=== PATIENT | male | born 1940 | race Caucasian/White ===

== ENCOUNTER 2016-12-28 10:30 | Inpatient (IN) | payer MEDICARE, OTHER ==
[~2016-12-28] VITALS: Ht 165.1 cm; Wt 112.5 kg
--- NOTE | ~2016-12-28 | OP ---
Record Of Operation [facility] [address] [place]. [address] NAME: HALIMA GOTTLIEB : 42 STATUS : ADM IN [facility]#: [id number] AGE: 76 ADM/REG DATE : 01/31/17 MR#: [id number] REPORT SERV DATE: 02/02/17 DICTATED BY: JOI OLSON DATE: 02/02/17 REPORT STATUS : Draft TRANSCRIBED BY: MODCelina DATE: 02/02/17 DATE OF PROCEDURE: 01/31/2017 PREOPERATIVE DIAGNOSES: 1. Aortic valve stenosis. 2. Coronary artery disease with angina. 3. Anemia, chronic and nonspecific origin. 4. Hypertension. 5. Hyperlipidemia. 6. Obesity. 7. Tobacco abuse. POSTOPERATIVE DIAGNOSES: 1. Aortic valve stenosis. 2. Coronary artery disease with angina. 3. Anemia, chronic and nonspecific origin. 4. Hypertension. 5. Hyperlipidemia. 6. Obesity. 7. Tobacco abuse. PROCEDURE PERFORMED: 1. Coronary artery bypass grafting x5: Left internal mammary artery placed to left anterior descending, reverse saphenous vein graft placed to the diagonal, reverse saphenous vein graft placed to the obtuse marginal, reverse saphenous vein graft placed to the posterolateral branch vessel and posterior descending artery. 2. Aortic valve perforation using a 23 mm pericardial valve (Trifecta). 3. Ligation and amputation of the left atrial appendage. 4. Endoscopic vein harvest, saphenous vein from the right leg. 5. Transesophageal echocardiography. ASSISTANTS: Stewart Kellogg and Gerhard Haddad. ANESTHESIA: General with Dr. Norman. FIRE SPRINKLER INSTALLER: Anthony Issa M.D. INDICATIONS: This is a 76-year-old gentleman, who has a history of angina. He has dyspnea with exertion. He does have remote history of anemia and required transfusion of 3 units of blood in 2014. He was seen earlier this summer, discussed surgery, and had an echocardiogram demonstrating at least moderate aortic valve stenosis. It looked like he had a bicuspid valve on echocardiography. Cardiac catheterization demonstrated significant three-vessel coronary artery disease. Ventricular function was preserved with an ejection fraction of greater than 50%. We were asked to see the patient for possible coronary artery bypass grafting and aortic valve replacement. We discussed this operation with the patient's family. After lengthy discussion of operation, its indications and risks, they Record Of Operation [facility] [address] [place]. [address] NAME: HALIMA GOTTLIEB : 42 STATUS : ADM IN PAT#: [id number] AGE: 76 ADM/REG DATE : 01/31/17 MR#: [id number] REPORT SERV DATE: 02/02/17 DICTATED BY: JIO OLSON DATE: 02/02/17 REPORT STATUS : Draft TRANSCRIBED BY: MODL DATE: 02/02/17 wished to proceed. The patient does have a remote history of smoking, which he quit in 1977, but continued tobacco chewing since that time. STS predicted risk of mortality of 2.3% and morbidity and mortality under 20% and this was shared with the family. FINDINGS AT OPERATION: 1. Cross-clamp time of 125 minutes. Total pump time 140 minutes. 2. The LAD is 1.75 mm and mildly diseased vessel. A 2.5 mm ASENCIO was anastomosed to it with good runoff. 3. The diagonal was 1.75 mm and moderately diseased. A 4 mm RSVG was anastomosed to it with good runoff. This was the medial branch of the diagonal bifurcation. 4. The obtuse marginal vessel was 2 mm and mildly diseased. A 4 mm RSVG was anastomosed to it with good runoff. 5. The posterior descending artery was 1.75 mm and moderately diseased. A 4 mm RSVG was anastomosed to it with good runoff. 6. The posterolateral branch vessel was 2 mm and moderately diseased. A 4 mm RSVG was anastomosed to it with good runoff. 7. The vein quality was good. All grafts did have good Doppler signal at the end of the case. 8. The aortic valve had three leaflets. There were heavy calcifications of the leaflets, although the annulus was not heavily calcified. There was no aortic root dilatation. Coronary anatomy was normal. 9. The aortic valve was replaced with a 25 mm pericardial valve (Trifecta). Sixteen Cor- Knots were used to secure the valve in place. 10.The left atrial appendage was ligated and amputated at the beginning of the case. No clot was seen in the left atrial appendage. 11.ABEBE demonstrated good ventricular function. The aortic valve prosthesis was well seated without perivalvular leak at the end the case and there was no significant mitral insufficiency. PATHOLOGIC SPECIMENS: Include aortic valve leaflets and left atrial appendage. DESCRIPTION OF PROCEDURE: The patient was brought to the operating suite where general anesthesia was induced, airway secured with an endotracheal tube. The lines were secured by Anesthesia. Díaz catheter was placed. The patient's chest, abdomen, groin, and legs prepped with Hibiclens and ChloraPrep and draped with Ioban sterile sheets. ABEBE probe was placed by Anesthesia and examination carried out in my attendance as discussed above. The saphenous vein was harvested from the right leg using endoscopic technique. Briefly, the vein was cut directly down upon through a 2 cm incision placed at the medial aspect of the right knee. Then, using VasoView trocars, the vessel was dissected from the surrounding subcutaneous tissue and fat. The side branches were identified, ligated, and divided with cautery. Once adequate length of vein had been dissected, a counterincision was made up in the groin and in the lower leg. The vein was ligated, divided, and brought through the knee incision. The vein quality was good and the leg wounds were made hemostatic and closed in layers of absorbable suture and skin was closed in subcuticular fashion. Next, a midline sternal incision was made and the sternum was opened with a saw. The left Record Of Operation [facility] [address] [facility] [place]. [address] NAME: HALIMA GOTTLIEB : 42 STATUS : ADM IN [facility]#: [id number] AGE: 76 ADM/REG DATE : 01/31/17 MR#: [id number] REPORT SERV DATE: 02/02/17 DICTATED BY: JOI OLSON DATE: 02/02/17 REPORT STATUS : Draft TRANSCRIBED BY: HAYDEE DATE: 02/02/17 hemithorax was elevated and the endothoracic fascia was incised. The side branches of the ANANT were clipped and divided. Once the ANANT was completely dissected, the patient was anticoagulated with heparin and chest tube was placed in left pleural cavity. The ANANT was clipped and divided distally. There was good flow through the ANANT and its pedicle was infiltrated with papaverine. Next, the Parveen retractor was placed in the pericardium over from the innominate vein. The diaphragm was T'd and tacked to the side of the chest wall. Cannulation pursestring sutures were placed and cannulation was carried out in routine manner. A retrograde cardioplegia cannula was placed in the coronary sinus. The ascending aorta was not heavily calcified or atherosclerotic. When all was in readiness, the patient was placed on cardiopulmonary bypass. The distal targets were marked out on the heart as described in the findings. Then, the aorta was cross-clamped. Initial dose of cold blood cardioplegia solution was given in a combination of antegrade and retrograde fashion and then in a retrograde manner at 20 to 25 minute intervals during the remainder of the cross-clamp period. Following the first dose of cardioplegia, the heart was gently retracted towards the surgeon. The ligament of Brien was divided. The base of the left atrial appendage was inspected. A 60 mm purple thoracoscopic staple load was then placed at the base of the left atrial appendage. The left atrial appendage was ligated and amputated at its base using the stapler. There was no clot seen in the left atrial appendage. We then placed a heart support. The heart was first positioned for the posterolateral branch graft. Arteriotomy was made. I felt that these were too good branches for sequential grafting. The vein was brought out to the field. It was opened proximally and a [id number] saphenous-coronary anastomosis was constructed with 7-0 Prolene. Then, the end of the vein graft was matched up to the PDA and an arteriotomy was made in this vessel. This vein graft was trimmed and anastomosed to it in an end-to-side fashion with a running suture of 7-0 Prolene. This vein graft was then measured back to the right side of the ascending aorta where it was divided. We then positioned the heart for the obtuse marginal graft. Another arteriotomy was made and the vein graft was trimmed and anastomosed to it with 7-0 Prolene. This vein graft was then measured back to the left side of the ascending aorta where it was divided. Another dose of cardioplegia was given and we positioned the heart for the diagonal graft. Arteriotomy was made and the vein graft was trimmed and anastomosed to it with 7-0 Prolene. This vein graft likewise measured back to the left side of the ascending aorta where it was divided. We then positioned the heart for the LAD graft. Arteriotomy was made in the mid LAD. The ANANT was brought out of the left chest through a notch in the pericardium over the pulmonary artery. The ANANT was opened and anastomosed to the LAD with a running suture of 8-0 Prolene. The endothoracic fascia was tacked to the epicardium. Another dose of cardioplegia was administered by Anesthesia. We then turned our attention towards the aortic valve. The heart support was removed. An LV vent was placed through right superior pulmonary vein and directed in the left ventricle through the mitral valve. A hockey-stick type aortotomy incision was made. The aortic valve was inspected. Coronary Record Of Operation [address] [place]. [address] NAME: HALIMA GOTTLIEB : 42 STATUS : ADM IN PAT#: [id number] AGE: 76 ADM/REG DATE : 01/31/17 MR#: [id number] REPORT SERV DATE: 02/02/17 DICTATED BY: JOI OLSON DATE: 02/02/17 REPORT STATUS : Draft TRANSCRIBED BY: HAYDEE DATE: 02/02/17 anatomy was normal. There was no aortic root dilatation. The aortic valve leaflets were fairly heavily calcified. There is a bar of calcium extending across the midportion of the leaflets. There was no fusion of the leaflets and there was no heavy calcification of the annulus. The leaflets were excised and the annulus debrided briefly. We then irrigated the ascending aorta and left ventricle copiously removing any particulate matter. The aortic annulus was sized and a 23 mm pericardial valve was selected (Trifecta). Interrupted pledgeted sutures of 2-0 Ti-Cron placed in a horizontal mattress fashion about the circumference of the aortic valve annulus. The pledgets were on the ventricular side. The sutures were passed through the sewing cuff of the valve prosthesis. This was lowered into position and each of the sutures individually secured and divided using a Cor-Knot device. A total of 16 Cor-Knots were utilized. The aortotomy incision was closed in a two-layer fashion with running sutures of pledgeted 5 0 Prolene. Warming was begun. Then, three 4.5 mm punch aortotomies were made in the ascending aorta. Then, the proximal end of each of the vein grafts were anastomosed to one of the sites with running sutures of 6-0 Prolene. The patient was placed in Trendelenburg and final dose of warm blood cardioplegia was given in a retrograde fashion. Ventricular and atrial pacing wires were placed. Following the last dose of cardioplegia and deairing of the aorta, the aortic cross-clamp was removed. Distal and proximal anastomoses were inspected and made hemostatic. Doppler demonstrated good flow through the grafts. The heart was paced in AV sequential fashion and ventilations begun. When the heart demonstrated good contractility, it was allowed to fill and eject. De-airing was monitored with ABEBE. When deairing was completed, the LV vent was removed and these pursestring sutures tied. The patient was taken out of Trendelenburg and the ascending aortic vent was removed and these pursestring sutures were tied and reinforced. The patient was then weaned from cardiopulmonary bypass with inotropic support. The venous cannulas were removed and these pursestring sutures were tied. ABEBE examination demonstrated good ventricular function. The aortic valve prosthesis was well seated without perivalvular leak. There was no significant mitral insufficiency. Protamine was administered by Anesthesia, and following a period of hemodynamic stability, the aortic cannula was removed and these pursestring sutures were tied and reinforced. The patient continued do well and chest was irrigated copiously with saline. Meticulous hemostasis was obtained. Hemasorb was placed along the cut edge of the sternum. Once hemostasis was assured, the pericardium was draped over the anterior surface of the heart and tacked into position. Doppler demonstrated good flow through the grafts following protamine administration. Then, chest tubes were placed and sternum reapproximated with eight sternal wires. The clavipectoral fascia and linea alba were closed with #1 StrataFix. The subcutaneous tissue was closed and skin was closed in subcuticular fashion. The patient tolerated the procedure well without any complications. Sponge and needle counts were correct. Record Of Operation [facility] [id number] [facility] [place]. [address] NAME: HALIMA GOTTLIEB : 42 STATUS : ADM IN [facility]#: [id number] AGE: 76 ADM/REG DATE : 01/31/17 MR#: [id number] REPORT SERV DATE: 02/02/17 DICTATED BY: JOI OLSON DATE: 02/02/17 REPORT STATUS : Draft TRANSCRIBED BY: HAYDEE DATE: 02/02/17 DISPOSITION: The patient was left intubated, sedated, and transported to the intensive care unit in stable condition. BROOKLYN/HAYDEE Joi Olson M.D. / [id number] CC: Mathew Gaspar M.D. Brian Mitchell, M.D.
[~2016-12-28 10:30] MED LIST: ASAB PO; BL FLAX SEED1000 MG PO; COREG6 PO; CRESTOR5 MG PO; ENDOCET1 TA3 PO; NITROSTAT0.4 MG SL; NORV25 PO; NORV5; NORV5 PO; SPIRO25 PO; TRICOR145 PO; VITAMIN D31000 UNIT PO; VITC500 PO; VITE1000 PO
[2017-01-27 10:02] LABS: BASOPHILS 0.6 %; BASOPHILS ABSOLUTE 0.04 10/3/uL (0.0-0.16); EOSINOPHILS 5.1 %; EOSINOPHILS ABSOLUTE 0.37 10/3/uL (0.0-0.53); HEMOGLOBIN 12.5 g/dL (13.6-17.8); IMMATURE GRANULOCYTES 0.1 %; IMMATURE GRANULOCYTES ABSOLUTE 0.01 10/3/uL (0.0-0.11); LYMPHOCYTES 21.1 %; LYMPHOCYTES ABSOLUTE 1.52 10/3/uL (0.67-4.30); MEAN CORPUS HGB CONC 31.9 g/dL (32.0-36.0); MEAN CORPUSCULAR HEMOGLOB 29.3 pg (26.0-34.0); MEAN PLATELET VOLUME 10.1 fL (9.2-13.0); MONOCYTES 8.1 %; MONOCYTES ABSOLUTE 0.58 10/3/uL (0.21-1.20); NEUTROPHILS ABSOLUTE 4.67 10/3/uL (2.02-8.40); PLATELET COUNT 240 10/3/uL (150-400); RBC DISTRIBUTION WIDTH 15.2 % (12.0-16.0); RED CELL COUNT 4.27 10/6/uL (4.7-6.1); WHITE BLOOD CELLS 7.2 10/3/uL (4.5-10.5)
[2017-01-27 10:03] LABS: HEMATOCRIT 39.2 % (40.0-51.0); MANUAL DIFF NO %; MEAN CORPUSCULAR VOLUME 91.8 fL (80-100)
[2017-01-27 10:06] LABS: INTERNATIONAL NORMAL RATI 1.2 UNITS (-); PROTIME (NOT ORD) 15.1 SEC (12.0-14.5)
[2017-01-27 10:17] LABS: % IRON SAT 24 % (20-50); A/G RATIO 0.9 (0.7-1.9); ALBUMIN 3.5 G/DL (3.5-5.0); ALKALINE PHOSPHATASE 48 U/L (45-117); BUN (BLOOD UREA NITROGEN) 14 MG/DL (6-23); CALCIUM, SERUM 8.9 MG/DL (8.5-10.4); CHLORIDE, SERUM 106 MMOL/L (96-112); CO2 (CARBON DIOXIDE) 30 MMOL/L (24-34); CREATININE 1.07 MG/DL (0.70-1.30); GFR AFRICAN AMERICAN 78 ML/MIN (>=60); GFR NON AFRICAN AMERICAN 68 ML/MIN (>=60); GLOBULIN 4.1 G/DL (2.5-4.1); GLUCOSE, SERUM 88 MG/DL (60-99); IRON BINDING CAPACITY 383 MCG/DL (250-450); IRON, SERUM 92 MCG/DL (35-150); POTASSIUM, SERUM 4.3 MMOL/L (3.5-5.3); SGOT(AST) 13 U/L (5-40); SGPT(ALT) 17 U/L (5-65); SODIUM, SERUM 140 MMOL/L (135-148); TOTAL BILIRUBIN 0.6 MG/DL (0-1.2); TOTAL PROTEIN 7.6 G/DL (6.0-8.5)
[2017-01-27 10:45] LABS: ASCORBIC ACID (UR NOT ORDER) 40 (NEG); BILIRUBIN, URINE NEGATIVE (NEG); KETONE, URINE NEGATIVE (NEG); LEUKOCYTE ESTERASE(NOT OR NEG (NEG); WBC (NOT ORDERED) (RFLEX) 1 (0-5)
[2017-01-27] MEDS ORDERED: KADIANSR30 PO (15:13)
[2017-01-31 14:46] LABS: INSTRUMENT SERIAL # 11843; PCO2 (CO2 TENSION) 45 MMHG (35-45); PO2 (O2 TENSION) 359 MMHG (79-93); pH 7.36 (7.37-7.43)
[2017-01-31 14:47] LABS: CARBOXYHEMOGLOBIN 0.5 % (0-3); HCO3 (ACTUAL BICARBONATE) 24.6 MEQ/L (23-27); HEMOBLOGIN CONTENT 11.5 G/DL (14-18); METHEMOGLOBIN 0.4 % (0-3); MODE SIMV; O2 CONTENT 16.8 VOL% (18-24); SAMPLE Arterial; TIDAL VOLUME 650 ML
[2017-01-31 14:57] LABS: HEMOGLOBIN 10.9 g/dL (13.6-17.8)
[2017-01-31 14:59] LABS: HEMATOCRIT 32.9 % (40.0-51.0); PLATELET COUNT 129 10/3/uL (150-400)
[2017-01-31 15:12] LABS: BUN (BLOOD UREA NITROGEN) 13 MG/DL (6-23); CHLORIDE, SERUM 110 MMOL/L (96-112); CO2 (CARBON DIOXIDE) 26 MMOL/L (24-34); CREATININE 1.09 MG/DL (0.70-1.30); GFR AFRICAN AMERICAN 77 ML/MIN (>=60); GFR NON AFRICAN AMERICAN 66 ML/MIN (>=60); GLUCOSE, SERUM 104 MG/DL (60-99); SODIUM, SERUM 144 MMOL/L (135-148)
[2017-01-31 15:13] LABS: POTASSIUM, SERUM 4.2 MMOL/L (3.5-5.3)
[2017-01-31 18:29] LABS: INTERNATIONAL NORMAL RATI 1.5 UNITS (-); PARTIAL THROMBO TIME 29.1 SEC (22.5-37.2); PROTIME (NOT ORD) 17.9 SEC (12.0-14.5)
[2017-01-31 21:04] LABS: BE (BASE EXCESS) -0.7 MEQ/L (0 +/- 2.5); CARBOXYHEMOGLOBIN 0.4 % (0-3); DEVICE NC; HCO3 (ACTUAL BICARBONATE) 24.8 MEQ/L (23-27); HEMOBLOGIN CONTENT 11.7 G/DL (14-18); INSTRUMENT SERIAL # 11843; METHEMOGLOBIN 0.4 % (0-3); O2 CONTENT 16.1 VOL% (18-24); OPERATOR ID 32193; PCO2 (CO2 TENSION) 45 MMHG (35-45); PO2 (O2 TENSION) 126 MMHG (79-93); SAMPLE Arterial; pH 7.36 (7.37-7.43)
[2017-01-31 21:52] LABS: HEMATOCRIT 34.3 % (40.0-51.0); HEMOGLOBIN 11.1 g/dL (13.6-17.8)
[2017-01-31 22:01] LABS: POTASSIUM, SERUM 4.4 MMOL/L (3.5-5.3)
[2017-02-01 03:31] LABS: BASOPHILS 0 %; EOSINOPHILS 0 %; HEMATOCRIT 33.5 % (40.0-51.0); IMMATURE GRANULOCYTES 0.2 %; IMMATURE GRANULOCYTES ABSOLUTE 0.03 10/3/uL (0.0-0.11); LYMPHOCYTES 8.8 %; LYMPHOCYTES ABSOLUTE 1.25 10/3/uL (0.67-4.30); MEAN CORPUS HGB CONC 32.8 g/dL (32.0-36.0); MEAN CORPUSCULAR HEMOGLOB 30.1 pg (26.0-34.0); MEAN CORPUSCULAR VOLUME 91.5 fL (80-100); MEAN PLATELET VOLUME 10.4 fL (9.2-13.0); MONOCYTES 7.8 %; NEUTROPHILS 83.2 %; NEUTROPHILS ABSOLUTE 11.81 10/3/uL (2.02-8.40); PLATELET COUNT 131 10/3/uL (150-400); RBC DISTRIBUTION WIDTH 14.9 % (12.0-16.0); RED CELL COUNT 3.66 10/6/uL (4.7-6.1)
[2017-02-01 03:32] LABS: MANUAL DIFF NO %; WHITE BLOOD CELLS 14.2 10/3/uL (4.5-10.5)
[2017-02-01 03:37] LABS: INTERNATIONAL NORMAL RATI 1.3 UNITS (-); PROTIME (NOT ORD) 16.5 SEC (12.0-14.5)
[2017-02-01 03:43] LABS: BUN (BLOOD UREA NITROGEN) 18 MG/DL (6-23); CALCIUM, SERUM 8.9 MG/DL (8.5-10.4); CHLORIDE, SERUM 112 MMOL/L (96-112); CO2 (CARBON DIOXIDE) 24 MMOL/L (24-34); CREATININE 0.88 MG/DL (0.70-1.30); GFR AFRICAN AMERICAN 97 ML/MIN (>=60); GFR NON AFRICAN AMERICAN 84 ML/MIN (>=60); GLUCOSE, SERUM 101 MG/DL (60-99); POTASSIUM, SERUM 4.2 MMOL/L (3.5-5.3); SODIUM, SERUM 145 MMOL/L (135-148)
[2017-02-01 17:19] LABS: HEMOGLOBIN 9.4 g/dL (13.6-17.8)
[2017-02-01 17:20] LABS: HEMATOCRIT 28.8 % (40.0-51.0)
[2017-02-01 17:28] LABS: POTASSIUM, SERUM 4.2 MMOL/L (3.5-5.3)
[2017-02-02 04:15] LABS: INTERNATIONAL NORMAL RATI 1.5 UNITS (-); PROTIME (NOT ORD) 17.6 SEC (12.0-14.5)
[2017-02-02 05:36] LABS: BASOPHILS 0.1 %; BASOPHILS ABSOLUTE 0.01 10/3/uL (0.0-0.16); EOSINOPHILS 0.1 %; EOSINOPHILS ABSOLUTE 0.01 10/3/uL (0.0-0.53); HEMATOCRIT 29.3 % (40.0-51.0); HEMOGLOBIN 9.5 g/dL (13.6-17.8); IMMATURE GRANULOCYTES 0.2 %; IMMATURE GRANULOCYTES ABSOLUTE 0.02 10/3/uL (0.0-0.11); LYMPHOCYTES 9.4 %; LYMPHOCYTES ABSOLUTE 1.08 10/3/uL (0.67-4.30); MANUAL DIFF NO %; MEAN CORPUS HGB CONC 32.4 g/dL (32.0-36.0); MEAN CORPUSCULAR HEMOGLOB 29.8 pg (26.0-34.0); MEAN CORPUSCULAR VOLUME 91.8 fL (80-100); MEAN PLATELET VOLUME 10.5 fL (9.2-13.0); MONOCYTES 12.3 %; MONOCYTES ABSOLUTE 1.41 10/3/uL (0.21-1.20); NEUTROPHILS 77.9 %; NEUTROPHILS ABSOLUTE 8.95 10/3/uL (2.02-8.40); PLATELET COUNT 129 10/3/uL (150-400); RBC DISTRIBUTION WIDTH 15.2 % (12.0-16.0); RED CELL COUNT 3.19 10/6/uL (4.7-6.1); WHITE BLOOD CELLS 11.5 10/3/uL (4.5-10.5)
[2017-02-02 05:47] LABS: BUN (BLOOD UREA NITROGEN) 22 MG/DL (6-23); CHLORIDE, SERUM 107 MMOL/L (96-112); CO2 (CARBON DIOXIDE) 24 MMOL/L (24-34); CREATININE 0.77 MG/DL (0.70-1.30); GFR AFRICAN AMERICAN 103 ML/MIN (>=60); GFR NON AFRICAN AMERICAN 89 ML/MIN (>=60); GLUCOSE, SERUM 109 MG/DL (60-99); POTASSIUM, SERUM 3.7 MMOL/L (3.5-5.3); SODIUM, SERUM 140 MMOL/L (135-148)
[2017-02-03 04:55] LABS: BASOPHILS 0.3 %; BASOPHILS ABSOLUTE 0.03 10/3/uL (0.0-0.16); EOSINOPHILS 0.9 %; HEMATOCRIT 27.6 % (40.0-51.0); HEMOGLOBIN 8.9 g/dL (13.6-17.8); IMMATURE GRANULOCYTES 0.3 %; IMMATURE GRANULOCYTES ABSOLUTE 0.03 10/3/uL (0.0-0.11); LYMPHOCYTES 13.8 %; LYMPHOCYTES ABSOLUTE 1.58 10/3/uL (0.67-4.30); MEAN CORPUS HGB CONC 32.2 g/dL (32.0-36.0); MEAN CORPUSCULAR HEMOGLOB 29.5 pg (26.0-34.0); MEAN CORPUSCULAR VOLUME 91.4 fL (80-100); MEAN PLATELET VOLUME 10.4 fL (9.2-13.0); MONOCYTES 12.8 %; MONOCYTES ABSOLUTE 1.47 10/3/uL (0.21-1.20); NEUTROPHILS 71.9 %; NEUTROPHILS ABSOLUTE 8.23 10/3/uL (2.02-8.40); PLATELET COUNT 139 10/3/uL (150-400); RBC DISTRIBUTION WIDTH 15.3 % (12.0-16.0); RED CELL COUNT 3.02 10/6/uL (4.7-6.1); WHITE BLOOD CELLS 11.4 10/3/uL (4.5-10.5)
[2017-02-03 04:57] LABS: MANUAL DIFF NO %
[2017-02-03 04:59] LABS: INTERNATIONAL NORMAL RATI 1.4 UNITS (-); PROTIME (NOT ORD) 17.1 SEC (12.0-14.5)
[2017-02-03 05:07] LABS: BUN (BLOOD UREA NITROGEN) 18 MG/DL (6-23); CHLORIDE, SERUM 106 MMOL/L (96-112); CO2 (CARBON DIOXIDE) 27 MMOL/L (24-34); CREATININE 0.76 MG/DL (0.70-1.30); GFR AFRICAN AMERICAN 103 ML/MIN (>=60); GFR NON AFRICAN AMERICAN 89 ML/MIN (>=60); GLUCOSE, SERUM 122 MG/DL (60-99); POTASSIUM, SERUM 3.9 MMOL/L (3.5-5.3); SODIUM, SERUM 140 MMOL/L (135-148)
[2017-02-04 06:15] LABS: BASOPHILS 0.2 %; BASOPHILS ABSOLUTE 0.02 10/3/uL (0.0-0.16); EOSINOPHILS 2.3 %; HEMATOCRIT 26.5 % (40.0-51.0); HEMOGLOBIN 8.5 g/dL (13.6-17.8); IMMATURE GRANULOCYTES 0.2 %; IMMATURE GRANULOCYTES ABSOLUTE 0.02 10/3/uL (0.0-0.11); LYMPHOCYTES 13.3 %; LYMPHOCYTES ABSOLUTE 1.14 10/3/uL (0.67-4.30); MEAN CORPUS HGB CONC 32.1 g/dL (32.0-36.0); MEAN CORPUSCULAR HEMOGLOB 29.2 pg (26.0-34.0); MEAN CORPUSCULAR VOLUME 91.1 fL (80-100); MONOCYTES 12.3 %; MONOCYTES ABSOLUTE 1.05 10/3/uL (0.21-1.20); NEUTROPHILS 71.7 %; NEUTROPHILS ABSOLUTE 6.13 10/3/uL (2.02-8.40); PLATELET COUNT 162 10/3/uL (150-400); RBC DISTRIBUTION WIDTH 15.3 % (12.0-16.0); RED CELL COUNT 2.91 10/6/uL (4.7-6.1); WHITE BLOOD CELLS 8.6 10/3/uL (4.5-10.5)
[2017-02-04 06:16] LABS: MANUAL DIFF NO %
[2017-02-04 06:23] LABS: INTERNATIONAL NORMAL RATI 1.4 UNITS (-); PROTIME (NOT ORD) 17.2 SEC (12.0-14.5)
[2017-02-04 06:28] LABS: BUN (BLOOD UREA NITROGEN) 13 MG/DL (6-23); CALCIUM, SERUM 8.6 MG/DL (8.5-10.4); CHLORIDE, SERUM 108 MMOL/L (96-112); CO2 (CARBON DIOXIDE) 28 MMOL/L (24-34); CREATININE 0.79 MG/DL (0.70-1.30); GFR AFRICAN AMERICAN 102 ML/MIN (>=60); GFR NON AFRICAN AMERICAN 88 ML/MIN (>=60); GLUCOSE, SERUM 103 MG/DL (60-99); POTASSIUM, SERUM 3.8 MMOL/L (3.5-5.3); SODIUM, SERUM 143 MMOL/L (135-148)
[2017-02-05 05:26] LABS: INTERNATIONAL NORMAL RATI 1.6 UNITS (-); PROTIME (NOT ORD) 18.6 SEC (12.0-14.5)
[2017-02-06 06:33] LABS: INTERNATIONAL NORMAL RATI 1.9 UNITS (-)
[2017-02-06 06:35] LABS: PROTIME (NOT ORD) 21.8 SEC (12.0-14.5)
[2017-02-06] MEDS ORDERED: LIPITOR40 PO (15:39)
[2017-02-06] MEDS ORDERED: L20 PO (15:40)
[2017-02-06] MEDS ORDERED: COUMADIN3 MG PO (15:41)
== END 2017-02-06 17:49 | disposition home or self-care (01) | DRG 220 ==
LOC: ENRESERVDT → ENRESERV → ENRESERVTM → 5NO 01-31 05:57 → SDC/OF 01-31 05:57 → CVICU 01-31 05:57 → 5NO 02-02 14:34
PROVIDERS: Nurse Practitioner Family; Thoracic Surgery (Cardiothoracic Vascular Surgery)
PROC: 02100Z9 Bypass Coronary Artery, One Artery from Left Internal Mammary, Open Approach (ICD-10-PCS; 2017-01-31)
PROC: 06BP4ZZ Excision of Right Saphenous Vein, Percutaneous Endoscopic Approach (ICD-10-PCS; 2017-01-31)
PROC: 5A1221Z Performance of Cardiac Output, Continuous (ICD-10-PCS; 2017-01-31)
PROC: B246ZZ4 Ultrasonography of Right and Left Heart, Transesophageal (ICD-10-PCS; 2017-01-31)
PROC: 02B70ZK Excision of Left Atrial Appendage, Open Approach (ICD-10-PCS; 2017-01-31)
PROC: 021309W Bypass Coronary Artery, Four or More Arteries from Aorta with Autologous Venous Tissue, Open Approach (ICD-10-PCS; principal; 2017-01-31 09:00)
PROC: 02RF08Z Replacement of Aortic Valve with Zooplastic Tissue, Open Approach (ICD-10-PCS; 2017-01-31 09:00)
DX: I25.119 Atherosclerotic heart disease of native coronary artery with unspecified angina pectoris (principal); Z68.41 Body mass index [BMI] 40.0-44.9, adult; D64.9 Anemia, unspecified; I35.0 Nonrheumatic aortic (valve) stenosis; I10 Essential (primary) hypertension; E78.5 Hyperlipidemia, unspecified; F17.210 Nicotine dependence, cigarettes, uncomplicated; E66.01 Morbid (severe) obesity due to excess calories; M13.80 Other specified arthritis, unspecified site
CPT/HCPCS: 36415; 71010; 71020; 80048; 80053; 81001; 82330; 82803; 82805; 82947; 82962; 83036; 83540; 83550; 83735; 84132; 84295; 85014; 85018; 85025; 85049; 85347; 85610; 85730; 86850; 86900; 86901; 86920; 87641; 88304; 88305; 88311; 93005; 93312; 93320; 93325; 94002; 94640; 94660; 94770; A9270-GY; C1713; C1751; C1769; C1894; J0690; J1644; J1940; J2150; J2250; J2370; J2440; J2597; J2720; J2795; J2930; J3010; J3475; J3480; P9045; P9047